=== PATIENT | male | born 2000 | race Caucasian/White ===

== ENCOUNTER 2021-03-12 01:49 | Emergency (ER) | payer OTHER ==
[~2021-03-12] VITALS: Ht 180.3 cm; Wt 68.0 kg
[2021-03-12 01:49] VITALS: BP_SYST 127
--- NOTE | 2021-03-12 01:49 | NUR ---
Patient to ER bed 1 to gown for evaluation. Side rails up.
--- NOTE | 2021-03-12 02:06 | NUR ---
Assumed total care of patient. Patient BIB ALS from [facility] c/o alcohol intoxication. Patient was found passed out on the floor in residential, surrounded by vomit. Patient is refusing to stay in gurney, uncooperative with staff, repetitive with wording, aggressive with words. Patient denies complaints of nausea, vomiting, fever, chills, chest pain, SOB. Patient VSS, breathing even and unlabored, no signs of acuted distress. Patient presents with bruise and swelling surrounding left eye. Patient denies trouble with vision/blurry vision. Patient arrived with 20g IV to left wrist. IV site patent. Patient placed on hall monitor. Will continue to monitor.
--- NOTE | 2021-03-12 02:12 | NUR ---
ER Dr. Tovar at bedside examining patient.
--- NOTE | 2021-03-12 02:30 | NUR ---
Patient moved to bed 5
--- NOTE | 2021-03-12 02:39 | NUR ---
Called Billy MCCANN for information on pt for family. Billy MCCANN has no family information on him .Pt was arrested and immediatley became sick and was transported to hospital before processing.
[2021-03-12] MEDS ORDERED: LORazepam 2 MG/ML VIAL IM ONE (03:00)
--- NOTE | 2021-03-12 03:27 | NUR ---
Patient transported to radiology via gurney, accompanied by jeremie and ulisses RN.
--- NOTE | 2021-03-12 03:50 | NUR ---
Returned from radiology, back to [facility]. Patient resting in [facility]. No signs of acute distress.
--- NOTE | 2021-03-12 04:22 | NUR ---
Patient resting in gurney comfortably. Patient breathing even and unlabored, no signs of acute distress noted. Will continue to monitor.
--- NOTE | 2021-03-12 05:06 | NUR ---
Patient attempting to get out of gurney, is uncooperative with staff, using disrespectful language. Patient reoriented to situation and plan of care. Patient medication per MD orders. Patient tolerated well.
[2021-03-12] MEDS ORDERED: LORazepam 2 MG/ML VIAL ONE (05:11)
--- NOTE | 2021-03-12 05:38 | NUR ---
Patients girlfriend contacted via phone to arrange ride home once discharged. Contact number is [phone]. Girlfriend will be at ER shortly.
--- NOTE | 2021-03-12 05:42 | NUR ---
Patient given clean shirt, shorts, and socks prior to discharge. Patient able to ambulate with steady gait. Patient ambulated to restroom. Patient returned to chair at bedside. Patient is cooperative and calm with staff.
[2021-03-12 06:34] VITALS: BP_SYST 106
== END 2021-03-12 06:34 | disposition home or self-care (01) ==
LOC: SED 01:49
DX: F10.129 Alcohol abuse with intoxication, unspecified (principal); R51.9 Headache, unspecified; Z79.899 Other long term (current) drug therapy; Y90.9 Presence of alcohol in blood, level not specified
CPT/HCPCS: 70450; 70486; 76376; 96372; 99285; J2060